=== PATIENT | male | born 1990 | race Caucasian/White ===

== ENCOUNTER 2017-05-04 10:26 | Emergency (ER) | payer SELFPAY ==
[2017-05-04] MEDS ORDERED: NORMAL SALINE 1000 ML 1,000 ML IV PRN (10:47)
--- NOTE | 2017-05-04 10:48 | ER Document Report ---
ED Medical Screen (RME) - General Chief Complaint: Abdominal Pain Stated Complaint: ABDOMINAL PAIN Time Seen by Provider: 05/04/17 10:46 Notes: Patient presents with left lower abdominal pain for 2 days. He states he has had vomiting and diarrhea with it. He states he is also had decreased appetite. He denies any previous surgeries or chronic medical conditions. TRAVEL OUTSIDE OF THE [place] IN LAST 30 DAYS: No - Related Data Allergies/Adverse Reactions: amoxicillin trihydrate [From Augmentin] Allergy (Verified 05/04/17 10:41) Potassium Clavulanate * [From Augmentin] Allergy (Verified 05/04/17 10:41) Past Medical History Pulmonary Medical History: Reports: Hx Asthma Renal/ Medical History: Denies: Hx Peritoneal Dialysis - Immunizations Hx Diphtheria, Pertussis, Tetanus Vaccination: No Physical Exam - Vital signs Vitals: Temp Pulse Resp BP Pulse Ox 97.7 F 67 18 120/73 97 05/04/17 10:41 05/04/17 10:41 05/04/17 10:41 05/04/17 10:41 05/04/17 10:41 Course - Vital Signs Vital signs: Temp Pulse Resp BP Pulse Ox 97.7 F 67 18 120/73 97 05/04/17 10:41 05/04/17 10:41 05/04/17 10:41 05/04/17 10:41 05/04/17 10:41
[2017-05-04] MEDS ORDERED: ONDANSETRON HCL INJ/PF 4 MG/2 ML SDV IV ONE (11:02)
--- NOTE | 2017-05-04 11:04 | ER Document Report ---
ED General - General Chief Complaint: Abdominal Pain Stated Complaint: ABDOMINAL PAIN Time Seen by Provider: 05/04/17 10:46 Notes: 27-year-old male presents with 3 days of intermittent left-sided abdominal pain , crampy, with vomiting diarrhea. Vomiting started first. Diarrhea has been several times a day, green in color. He has not been eating or drinking very much since it began. It started after he ate hot dogs and double legs. No recent antibiotics or foreign travel. Taking Pepto-Bismol and Imodium at home. Currently when I examined him he has no abdominal pain. TRAVEL OUTSIDE OF THE [place] IN LAST 30 DAYS: No - Related Data Allergies/Adverse Reactions: amoxicillin trihydrate [From Augmentin] Allergy (Verified 05/04/17 10:41) Potassium Clavulanate * [From Augmentin] Allergy (Verified 05/04/17 10:41) Past Medical History - Social History Smoking Status: Current Every Day Smoker Frequency of alcohol use: Occasional Drug Abuse: None Family History: None Patient has suicidal ideation: No Patient has homicidal ideation: No Pulmonary Medical History: Reports: Hx Asthma Renal/ Medical History: Denies: Hx Peritoneal Dialysis Past Surgical History: Reports: Hx Oral Surgery - wisdom teeth - Immunizations Hx Diphtheria, Pertussis, Tetanus Vaccination: No Review of Systems - Review of Systems Notes: REVIEW OF SYSTEMS GEN: Denies fever, chills, weight loss ENT: Denies sore throat, nasal discharge, ear pain EYES: Denies blurry vision, eye pain, discharge CV: Denies chest pain, palpitations, edema RESP: Denies cough, shortness of breath, wheezing GI: D abdominal pain vomiting diarrhea MSK: Denies joint pain/swelling, edema, SKIN: Denies rash, skin lesions LYMPH: Denies swollen glands/lymph nodes NEURO: Denies headache, focal weakness or numbness, dizziness PSYCH: Denies depression, suicidal or homicidal ideation PHYSICAL EXAMINATION General: No acute distress, well-nourished Head: Atraumatic, normocephalic ENT: Mouth normal, oropharynx moist, no exudates or tonsillar enlargement Eyes: Conjunctiva normal, pupils equal, lids normal Neck: No JVD, supple, no guarding CVS: Normal rate, regular rhythm, no murmurs Resp: No resp distress, equal and normal breath sounds bilaterally GI: Nondistended, soft, minimal left upper quadrant tenderness to palpation, no rebound or guarding Ext: No deformities, no edema, normal range of motion in upper and lower ext Back: No CVA or midline TTP Skin: No rash, warm Lymphatic: No lymphadeopathy noted Neuro: Awake, alert. Face symmetric. GCS 15. Physical Exam - Vital signs Vitals: Temp Pulse Resp BP Pulse Ox 97.7 F 67 18 120/73 97 05/04/17 10:41 05/04/17 10:41 05/04/17 10:41 05/04/17 10:41 05/04/17 10:41 Course - Re-evaluation Re-evalutation: 05/04/17 11:03 3 days of gastroenteritis type symptoms with left upper abdominal tenderness. Vitals are normal. Well-appearing. Likely viral versus foodborne, less likely diverticulitis or appendicitis given his exam and story. We will hydrate him, check labs he will likely be discharged home with symptomatic therapy. 05/04/17 12:09 Labs are normal except very mild hyponatremia and hypochloremia likely from dehydration. Patient is received a liter of fluid which should replete this. His symptoms are controlled in the ED and his labs are otherwise normal. He is safe for discharge home. I have discussed with the patient there likely diagnosis, aftercare plan, follow-up plans and my usual and customary return precautions. They verbalized understanding of this. - Vital Signs Vital signs: Temp Pulse Resp BP Pulse Ox 97.7 F 67 18 120/73 97 05/04/17 10:41 05/04/17 10:41 05/04/17 10:41 05/04/17 10:41 05/04/17 10:41 - Laboratory Result Diagrams: 05/04/17 11:15 05/04/17 11:15 Laboratory results interpreted by me: 05/04/17 05/04/17 05/04/17 11:15 11:15 11:15 RDW 14.2 H Sodium 136.4 L Chloride 96 L Direct Bilirubin 0.5 H Albumin 5.1 H Urine Ketones TRACE H Discharge - Discharge Clinical Impression: Vomiting and diarrhea Condition: Good Disposition: HOME, SELF-CARE Instructions: Abdominal Pain ([facility]) Additional Instructions: Please continue to take Imodium for your diarrhea and keep well hydrated with water. Please follow-up with your regular doctor if you are not better in 2 days. Please come back to the emergency room if you get worse in any way over the next several days.
[2017-05-04 11:28] LABS: ABSOLUTE EOSINOPHILS # (AUTO) 0.2 10^3/uL (0.0-0.6); ABSOLUTE LYMPHOCYTES (AUTO) 1.3 10^3/uL (0.5-4.7); ABSOLUTE MONOCYTES (AUTO) 0.6 10^3/uL (0.1-1.4); BASOPHILS % (AUTO) 0.8 % (0-2); EOSINOPHILS % (AUTO) 4.5 % (0-6); HEMATOCRIT 46.7 % (37.9-51.0); HEMOGLOBIN 15.7 g/dL (13.5-17.0); HGB HCT DIFFERENCE 0.4; LYMPHOCYTES % (AUTO) 25.8 % (13-45); MEAN CORPUSCULAR HEMOGLOBIN 28.8 pg (27.0-33.4); MEAN CORPUSCULAR HGB CONC 33.6 g/dL (32.0-36.0); MEAN CORPUSCULAR VOLUME 86 fl (80-97); MONOCYTES % (AUTO) 10.9 % (3-13); RED BLOOD COUNT 5.46 10^6/uL (4.35-5.55); RED CELL DISTRIBUTION WIDTH 14.2 % (11.5-14.0); WHITE BLOOD COUNT 5.2 10^3/uL (4.0-10.5)
[2017-05-04 11:38] LABS: APPEARANCE,URINE CLEAR; BILIRUBIN,URINE NEGATIVE (NEGATIVE); GLUCOSE, URINE NEGATIVE (NEGATIVE); KETONES,URINE TRACE mg/dL (NEGATIVE); LEUKOCYTE ESTERASE,URINE NEGATIVE (NEGATIVE); NITRITE,URINE NEGATIVE (NEGATIVE); PROTEIN,URINE NEGATIVE (NEGATIVE); URINE SPECIFIC GRAVITY 1.003; UROBILINOGEN,URINE NEGATIVE mg/dL (<2.0)
[2017-05-04 11:50] LABS: ALANINE AMINOTRANSFERASE 48 U/L (21-72); ALBUMIN 5.1 g/dL (3.5-5.0); ALKALINE PHOSPHATASE 95 U/L (38-126); ANION GAP 13 (5-19); ASPARTATE AMINO TRANSFERASE 37 U/L (17-59); BILIRUBIN,DIRECT 0.5 mg/dL (0.0-0.4); BILIRUBIN,TOTAL 0.7 mg/dL (0.2-1.3); BLOOD UREA NITROGEN 15 mg/dL (7-20); CALCIUM 10.1 mg/dL (8.4-10.2); CARBON DIOXIDE 27 mmol/L (22-30); CHLORIDE 96 mmol/L (98-107); CREATININE RESULT 0.95 mg/dL (0.52-1.25); GLUCOSE 88 mg/dL (75-110); POTASSIUM 4.6 mmol/L (3.6-5.0); SODIUM 136.4 mmol/L (137-145); TOTAL PROTEIN 8.1 g/dL (6.3-8.2)
[2017-05-04 12:15] VITALS: BP 119/68
== END 2017-05-04 12:10 | disposition home or self-care (01) ==
LOC: ER 10:26
DX: R11.10 Vomiting, unspecified (principal); R19.7 Diarrhea, unspecified; R10.812 Left upper quadrant abdominal tenderness; E87.1 Hypo-osmolality and hyponatremia; E87.8 Other disorders of electrolyte and fluid balance, not elsewhere classified; J45.909 Unspecified asthma, uncomplicated; F17.200 Nicotine dependence, unspecified, uncomplicated; Z88.0 Allergy status to penicillin
CPT/HCPCS: 99284; 96361; 96374; 36415; 85025; 80053; 81001; J2405; J7030

== ENCOUNTER 2017-11-05 17:01 | Emergency (ER) | payer OTHER ==
[2017-11-05 17:21] VITALS: BP 117/72
[2017-11-05] MEDS ORDERED: NORMAL SALINE 1000 ML 1,000 ML IV ONE (17:59)
[2017-11-05] MEDS ORDERED: ONDANSETRON HCL INJ/PF 4 MG/2 ML SDV IV ONE (17:59)
--- NOTE | 2017-11-05 18:02 | ER Document Report ---
ED Medical Screen (RME) - General Chief Complaint: Epigastric Pain Stated Complaint: VOMITING, STOMACH PAIN, CHEST PAIN Time Seen by Provider: 11/05/17 17:59 Mode of Arrival: Ambulatory Information source: Patient TRAVEL OUTSIDE OF THE [place] IN LAST 30 DAYS: No - HPI Patient complains to provider of: CP, abd pain, vomiting Onset: Other - pt. with 1 week h/o CP, Abd pain, weakness, and vomiting - Related Data Allergies/Adverse Reactions: amoxicillin trihydrate [From Augmentin] Allergy (Verified 11/05/17 17:02) Potassium Clavulanate * [From Augmentin] Allergy (Verified 11/05/17 17:02) Past Medical History Pulmonary Medical History: Reports: Hx Asthma Renal/ Medical History: Denies: Hx Peritoneal Dialysis Past Surgical History: Reports: Hx Oral Surgery - wisdom teeth - Immunizations Hx Diphtheria, Pertussis, Tetanus Vaccination: No Physical Exam - Vital signs Vitals: Temp Pulse Resp BP Pulse Ox 99.0 F 82 16 117/72 98 11/05/17 17:20 11/05/17 17:20 11/05/17 17:20 11/05/17 17:20 11/05/17 17:20 Course - Vital Signs Vital signs: Temp Pulse Resp BP Pulse Ox 99.0 F 82 16 117/72 98 11/05/17 17:20 11/05/17 17:20 11/05/17 17:20 11/05/17 17:20 11/05/17 17:20
[2017-11-05 18:31] LABS: ABSOLUTE BASOPHILS # (AUTO) 0.1 10^3/uL (0.0-0.2); ABSOLUTE EOSINOPHILS # (AUTO) 0.5 10^3/uL (0.0-0.6); ABSOLUTE LYMPHOCYTES (AUTO) 2.5 10^3/uL (0.5-4.7); ABSOLUTE MONOCYTES (AUTO) 0.6 10^3/uL (0.1-1.4); ABSOLUTE NEUT (AUTO) 3.9 10^3/uL (1.7-8.2); BASOPHILS % (AUTO) 0.9 % (0-2); EOSINOPHILS % (AUTO) 7.1 % (0-6); HEMATOCRIT 42.7 % (37.9-51.0); LYMPHOCYTES % (AUTO) 32.8 % (13-45); MEAN CORPUSCULAR HEMOGLOBIN 28.1 pg (27.0-33.4); MEAN CORPUSCULAR HGB CONC 32.9 g/dL (32.0-36.0); MEAN CORPUSCULAR VOLUME 86 fl (80-97); MONOCYTES % (AUTO) 8.2 % (3-13); PLATELET COUNT 249 10^3/uL (150-450); RED BLOOD COUNT 4.98 10^6/uL (4.35-5.55); RED CELL DISTRIBUTION WIDTH 13.7 % (11.5-14.0); TOTAL CELLS COUNTED % (AUTO) 100 %; WHITE BLOOD COUNT 7.6 10^3/uL (4.0-10.5)
--- NOTE | 2017-11-05 18:40 | RADIOLOGY REPORT (SQ) ---
EXAM DESCRIPTION: ACUTE ABDOMEN SERIES COMPLETED DATE/TIME: 11/05/2017 6:28 pm REASON FOR STUDY: abd pain COMPARISON: None. NUMBER OF VIEWS: Three views. TECHNIQUE: Frontal chest, supine abdomen and upright/decubitus abdomen radiographic images acquired. LIMITATIONS: None. FINDINGS: CHEST: Lungs clear of infiltrates. FREE AIR: None. No abnormal gas collections. BOWEL GAS PATTERN: Nonobstructive pattern. No dilated loops or air fluid levels. CALCIFICATIONS: No suspicious calcifications. HARDWARE: None in the abdomen. SOFT TISSUES: No gross mass or suggestion of organomegaly. BONES: No acute fracture. Scoliosis. No worrisome bone lesions. OTHER: No other significant finding. IMPRESSION: NO RADIOGRAPHIC EVIDENCE FOR ACUTE ABDOMINAL DISEASE. TECHNICAL DOCUMENTATION: JOB ID: [id number] [employer]- All Rights Reserved Reading location - IP/workstation name: [email or web address]
[2017-11-05 18:45] LABS: ALANINE AMINOTRANSFERASE 42 U/L (21-72); ALBUMIN 5.1 g/dL (3.5-5.0); ALKALINE PHOSPHATASE 54 U/L (38-126); ANION GAP 12 (5-19); ASPARTATE AMINO TRANSFERASE 24 U/L (17-59); BILIRUBIN,DIRECT 0.4 mg/dL (0.0-0.4); BILIRUBIN,TOTAL 0.7 mg/dL (0.2-1.3); BLOOD UREA NITROGEN 11 mg/dL (7-20); CARBON DIOXIDE 29 mmol/L (22-30); CHLORIDE 102 mmol/L (98-107); CREATINE KINASE 80 U/L (55-170); GLUCOSE 98 mg/dL (75-110); SODIUM 143.3 mmol/L (137-145); TOTAL PROTEIN 8.1 g/dL (6.3-8.2)
[2017-11-05 18:46] LABS: APPEARANCE,URINE CLEAR; BILIRUBIN,URINE NEGATIVE (NEGATIVE); COLOR,URINE YELLOW; GLUCOSE, URINE NEGATIVE (NEGATIVE); KETONES,URINE NEGATIVE (NEGATIVE); LEUKOCYTE ESTERASE,URINE NEGATIVE (NEGATIVE); NITRITE,URINE NEGATIVE (NEGATIVE); PROTEIN,URINE NEGATIVE (NEGATIVE); URINE SPECIFIC GRAVITY 1.012; UROBILINOGEN,URINE NEGATIVE mg/dL (<2.0)
[2017-11-05 18:55] LABS: A TYPE INFLUENZA AG NEGATIVE (NEGATIVE); B INFLUENZA AG NEGATIVE (NEGATIVE)
[2017-11-05 18:57] LABS: CREATINE KINASE MB 0.26 ng/mL (<4.55)
[2017-11-05 18:59] LABS: TROPONIN I < 0.012 ng/mL
--- NOTE | 2017-11-05 19:02 | EKG REPORT ---
SEVERITY:- ABNORMAL ECG - SINUS RHYTHM IRBBB : Confirmed by: Keon Busby MD 05-Nov-2017 19:01:34
[2017-11-05] MEDS ORDERED: MAG HYDROX/AL HYDROX/SIMETH SUSP 30 ML UDCUP PO ONE (19:24)
[2017-11-05] MEDS ORDERED: METOCLOPRAMIDE HCL ORAL SOLN 10 MG/10 ML UDCUP PO ONE (19:24)
[2017-11-05] MEDS ORDERED: LIDOCAINE 2% VISCOUS SOLN 20 ML UDCUP PO ONE (19:24)
--- NOTE | 2017-11-05 19:26 | ER Document Report ---
ED General - General Chief Complaint: Epigastric Pain Stated Complaint: VOMITING, STOMACH PAIN, CHEST PAIN Time Seen by Provider: 11/05/17 17:59 Mode of Arrival: Ambulatory TRAVEL OUTSIDE OF THE [place] IN LAST 30 DAYS: No - HPI Patient complains to provider of: Epigastric abdominal pain vomiting Notes: Patient coming in for the above-stated symptoms. Patient also states some chest pain. Patient states increased use of ibuprofen over the last few months. Patient states states is for his back. Patient states he mostly gets pain approximately 30-45 minutes after eating. Patient denies any rectal bleeding. Patient resting company upon my evaluation. Denies recent travel trauma denies any fever chills - Related Data Allergies/Adverse Reactions: amoxicillin trihydrate [From Augmentin] Allergy (Verified 11/05/17 17:02) Potassium Clavulanate * [From Augmentin] Allergy (Verified 11/05/17 17:02) Past Medical History - General Information source: Patient - Social History Smoking Status: Current Every Day Smoker Frequency of alcohol use: Social Drug Abuse: None Family History: None Patient has suicidal ideation: No Patient has homicidal ideation: No Pulmonary Medical History: Reports: Hx Asthma Renal/ Medical History: Denies: Hx Peritoneal Dialysis Past Surgical History: Reports: Hx Oral Surgery - wisdom teeth - Immunizations Hx Diphtheria, Pertussis, Tetanus Vaccination: No Review of Systems - Review of Systems Constitutional: No symptoms reported EENT: No symptoms reported Cardiovascular: No symptoms reported, Chest pain Gastrointestinal: Abdominal pain, Nausea, Vomiting Genitourinary: No symptoms reported Male Genitourinary: No symptoms reported Musculoskeletal: No symptoms reported Skin: No symptoms reported Hematologic/Lymphatic: No symptoms reported Neurological/Psychological: No symptoms reported -: Yes All other systems reviewed and negative Physical Exam - Vital signs Vitals: Temp Pulse Resp BP Pulse Ox 99.0 F 82 16 117/72 98 11/05/17 17:20 11/05/17 17:20 11/05/17 17:20 11/05/17 17:20 11/05/17 17:20 Interpretation: Normal - General General appearance: Appears well, Alert - HEENT Head: Normocephalic, Atraumatic Eyes: Normal Pupils: PERRL - Respiratory Respiratory status: No respiratory distress Chest status: Tender - Tenderness palpation of the left side of the chest Breath sounds: Normal Chest palpation: Normal - Cardiovascular Rhythm: Regular Heart sounds: Normal auscultation Murmur: No - Abdominal Inspection: Normal Distension: No distension Bowel sounds: Normal Tenderness: Tender - Mild tenderness in the epigastric region Organomegaly: No organomegaly - Back Back: Normal, Nontender - Extremities General upper extremity: Normal inspection, Nontender, Normal color, Normal ROM , Normal temperature General lower extremity: Normal inspection, Nontender, Normal color, Normal ROM , Normal temperature, Normal weight bearing. No: Gal's sign - Neurological Neuro grossly intact: Yes Cognition: Normal Orientation: AAOx4 [place] Coma Scale Eye Opening: Spontaneous [place] Coma Scale Verbal: Oriented [place] Coma Scale Motor: Obeys Commands [place] Coma Scale Total: 15 Speech: Normal Motor strength normal: LUE, RUE, LLE, RLE Sensory: Normal - Psychological Associated symptoms: Normal affect, Normal mood - Skin Skin Temperature: Warm Skin Moisture: Dry Skin Color: Normal Course - Re-evaluation Re-evalutation: 11/06/17 00:35 The patient has atypical chest pain as the patient's chest pain is not suggestive of pulmonary embolus, cardiac ischemia, aortic dissection, or other serious etiology. Given the extremely low risk of these diagnoses further testing and evaluation for these possibilities does not appear to be indicated at this time. The patient has been instructed to return if the symptoms worsen or change in any way. The patient presents with abdominal pain without signs of peritonitis or other life-threatening or serious etiology. The patient appears stable for discharge and has been instructed to return immediately if the symptoms worsen in any way, or in 8-12hr if not improved for re-evaluation. The patient has been instructed to return if the symptoms worsen or change in any way. Due to the patient's history of chronic NSAID use more likely patient has developed gastritis. We will start the patient on Reglan Carafate and omeprazole. Patient was encouraged to follow-up with a GI specialist. - Vital Signs Vital signs: Temp Pulse Resp BP Pulse Ox 99.0 F 82 16 117/72 98 11/05/17 17:20 11/05/17 17:20 11/05/17 17:20 11/05/17 17:20 11/05/17 17:20 - Laboratory Result Diagrams: 11/05/17 18:10 11/05/17 18:10 Laboratory results interpreted by me: 11/05/17 11/05/17 18:10 18:10 Eosinophils % 7.1 H Albumin 5.1 H Discharge - Discharge Clinical Impression: Epigastric abdominal pain Condition: Good Disposition: HOME, SELF-CARE Instructions: Abdominal Pain ([facility]), Gastritis ([facility]) Additional Instructions: Take medications as prescribed. Your laboratory studies today did not show any signs of acute illness your history and the location of the pain is consistent with gastritis. More likely this is induced due to your anti-inflammatory use alcohol use and smoking. Recommend stopping these habits. Also recommend following up with one the GI doctors listed. Take medications as prescribed return to ER symptoms worsen. Prescriptions: Metoclopramide HCl [Reglan] 5 mg PO Q6 #30 tablet Omeprazole 20 mg PO DAILY #30 capsule. Sucralfate [Carafate 1 gm Tablet] 1 gm PO ACHS #120 tablet Forms: Return to Work
== END 2017-11-05 19:48 | disposition home or self-care (01) ==
LOC: ER 17:01
DX: R10.13 Epigastric pain (principal); R11.10 Vomiting, unspecified; R07.9 Chest pain, unspecified; F17.200 Nicotine dependence, unspecified, uncomplicated
CPT/HCPCS: 93005; 99284; 96361; 96374; 36415; 82553; 82550; 85025; 80053; 81001; 84484; 87804; 74022; 93010; J3490; J2405; J7030

== ENCOUNTER 2018-02-03 07:26 | Emergency (ER) | payer OTHER ==
[2018-02-03 07:38] VITALS: BP 117/79
--- NOTE | 2018-02-03 07:50 | ER Document Report ---
ED General - General Chief Complaint: Suture Removal Stated Complaint: SUTURE REMOVAL Time Seen by Provider: 02/03/18 07:50 Mode of Arrival: Ambulatory Information source: Patient TRAVEL OUTSIDE OF THE [place] IN LAST 30 DAYS: No - HPI Notes: 27-year-old male presents to emergency room for suture removal after cutting his dorsal aspect of finger on the garage door spring approximately 9 days ago. Denies any fevers or chills. Tetanus is up-to-date. Denies any numbness or tingling in fingers. Denies any drainage from wound. Denies any pain. He had 3 sutures placed. Denies numbness or tingling in bilateral upper or lower extremities equally, muscle paralysis, weakness in bilateral upper or lower extremities equally or rash. - Related Data Allergies/Adverse Reactions: amoxicillin trihydrate [From Augmentin] Allergy (Verified 11/05/17 17:02) Potassium Clavulanate * [From Augmentin] Allergy (Verified 11/05/17 17:02) Past Medical History - General Information source: Patient - Social History Smoking Status: Unknown if Ever Smoked Family History: None Pulmonary Medical History: Reports: Hx Asthma Renal/ Medical History: Denies: Hx Peritoneal Dialysis Past Surgical History: Reports: Hx Oral Surgery - wisdom teeth - Immunizations Hx Diphtheria, Pertussis, Tetanus Vaccination: No Review of Systems - Review of Systems Constitutional: No symptoms reported Cardiovascular: No symptoms reported Respiratory: No symptoms reported Male Genitourinary: No symptoms reported Musculoskeletal: No symptoms reported Skin: See HPI Hematologic/Lymphatic: No symptoms reported Neurological/Psychological: No symptoms reported Physical Exam - Vital signs Vitals: Temp Pulse Resp BP Pulse Ox 98.3 F 66 16 117/79 97 02/03/18 07:36 02/03/18 07:36 02/03/18 07:36 02/03/18 07:36 02/03/18 07:36 - Notes Notes: PHYSICAL EXAMINATION: GENERAL: Well-appearing, well-nourished and in no acute distress. HEAD: Atraumatic, normocephalic. NECK: Normal range of motion, supple without lymphadenopathy LUNGS: Breath sounds clear to auscultation bilaterally and equal. No wheezes rales or rhonchi. HEART: Regular rate and rhythm without murmurs Musculoskeletal: Normal range of motion, no pitting or edema. No cyanosis. NEUROLOGICAL: Cranial nerves grossly intact. Normal speech, normal gait. Normal sensory, motor exams. Full motor and sensory function in MANNIE. Title Department Manager + 2 BUE equally. Ulnar and radial pulses + 2 BUE equally. DTRs +2 in bilateral upper extremities equally. No deformity noted of hand or wrist bilaterally. Normal flexion, extension, ulnar/radial deviation. Negative kanavels sign. No open wounds or drainage from wrist. No vascular compromise. full motor and sensory function with medial, radial and ulnar nerves bilaterally and equally. PSYCH: Normal mood, normal affect. SKIN: Warm, Dry, normal turgor, no rashes or lesions noted. 3 simple sutures to the dorsal aspect of right index finger at PIP. no erythema, induration or drainage noted. Course - Re-evaluation Re-evalutation: 02/03/18 09:35 Removal left 3 simple sutures without issues. with suture kit. tolerated removal incident. advised to follow-up with primary care provider as needed. Monitor for any signs and symptoms of infection such as redness, drainage, swelling. All questions answered. Patient verbalized understanding of this plan of care and agree with plan of care. patient comfortable with the decision to go home. 02/03/18 09:37 After performing a Medical Screening Examination, I estimate there is LOW risk for OPEN FRACTURE, COMPARTMENT SYNDROME, TENDON RUPTURE, ACUTE NEUROVASCULAR INJURY, or RETAINED FOREIGN BODY, thus I consider the discharge disposition reasonable. Also, there is no evidence or peritonitis, sepsis, or toxicity. I have reevaluated this patient multiple times and no significant life threatening changes are noted. The patient and I have discussed the diagnosis and risks, and we agree with discharging home with close follow-up with the understanding that symptoms and presentations can change. We also discussed returning to the Emergency Department immediately if new or worsening symptoms occur. We have discussed the symptoms which are most concerning (e.g., changing or worsening pain, fever, numbness, weakness, cool or painful digits) that necessitate immediate return. 02/03/18 09:38 - Vital Signs Vital signs: Temp Pulse Resp BP Pulse Ox 98.3 F 66 16 117/79 97 02/03/18 07:36 02/03/18 07:36 02/03/18 07:36 02/03/18 07:36 02/03/18 07:36 Discharge - Discharge Clinical Impression: Encounter for removal of sutures Condition: Good Disposition: HOME, SELF-CARE Instructions: Suture Removal Referrals: DRU JC MD [ACTIVE STAFF] - Follow up as needed JANETH SALAZAR MD [ACTIVE STAFF] - Follow up as needed
== END 2018-02-03 08:28 | disposition home or self-care (01) ==
LOC: ER 07:26
DX: S61.210D Laceration without foreign body of right index finger without damage to nail, subsequent encounter (principal); W45.8XXD Other foreign body or object entering through skin, subsequent encounter; J45.909 Unspecified asthma, uncomplicated; Z88.0 Allergy status to penicillin

== ENCOUNTER 2018-03-27 10:53 | Emergency (ER) | payer OTHER ==
[2018-03-27 11:00] VITALS: BP 120/75
--- NOTE | 2018-03-27 11:20 | ER Document Report ---
ED General - General Chief Complaint: Head Injury Stated Complaint: FELL/BACK/NECK PAIN Time Seen by Provider: 03/27/18 11:11 Mode of Arrival: Ambulatory Information source: Patient Notes: 28-year-old male with history of asthma, chronic low back pain presents with complaint of headache, neck pain, nausea and intermittent blurred vision. Patient states that he was walking up his stairs yesterday when he lost his balance causing him to fall backwards down 3 steps landing on the concrete and striking his head and neck. Patient denies any loss of consciousness. He was able to get up independently. He states that since that time he is experienced a severe headache that is located in the back of his head. It is described as a constant throbbing pain. He is also experiencing some aching neck pain. TRAVEL OUTSIDE OF THE [place] IN LAST 30 DAYS: No - Related Data Allergies/Adverse Reactions: amoxicillin trihydrate [From Augmentin] Allergy (Verified 03/27/18 11:17) Potassium Clavulanate * [From Augmentin] Allergy (Verified 03/27/18 11:17) ibuprofen Adverse Reaction (Verified 03/27/18 11:17) Past Medical History - General Information source: Patient, [facility] Records - Social History Smoking Status: Former Smoker Chew tobacco use (# tins/day): No Frequency of alcohol use: Occasional Drug Abuse: None Lives with: Family Family History: None Patient has suicidal ideation: No Patient has homicidal ideation: No Pulmonary Medical History: Reports: Hx Asthma Renal/ Medical History: Denies: Hx Peritoneal Dialysis Past Surgical History: Reports: Hx Oral Surgery - wisdom teeth - Immunizations Hx Diphtheria, Pertussis, Tetanus Vaccination: No Review of Systems - Review of Systems Notes: REVIEW OF SYSTEMS: CONSTITUTIONAL : Denies fever, chills, or sweats. Denies recent illness. Denies weight loss, recent hospitalizations. EENT: Denies visual changes, eye pain. Denies nasal or sinus congestion or discharge. Denies sore throat, oral lesions, difficulty swallowing. CARDIOVASCULAR: Denies chest pain. Denies palpitations. Denies lower extremity edema. RESPIRATORY: Denies cough, cold, or chest congestion. Denies shortness of breath, wheezing. GASTROINTESTINAL: Denies abdominal pain or distention. Denies diarrhea. Denies blood in vomitus, stools, or per rectum. Denies black, tarry stools. Denies constipation. GENITOURINARY: Denies difficulty urinating, painful urination, frequency, blood in urine, or vaginal discharge. MUSCULOSKELETAL: Denies joint pain or swelling. SKIN: Denies rash, lesions or sores. HEMATOLOGIC : Denies easy bruising or bleeding. LYMPHATIC: Denies swollen glands. NEUROLOGICAL: Denies confusion or altered mental status. Denies passing out or loss of consciousness. Denies dizziness or lightheadedness. Denies headache. Denies weakness or paralysis. Denies problems difficulty with ambulation, slurred speech. Denies sensory loss, numbness, or tingling. Denies seizures. PSYCHIATRIC: Denies anxiety or stress. Denies depression, suicidal ideation, or homicidal ideation. Denies visual or auditory hallucinations. Physical Exam - Vital signs Vitals: Temp Pulse Resp BP Pulse Ox 98.3 F 91 18 120/75 98 03/27/18 10:57 03/27/18 10:57 03/27/18 10:57 03/27/18 10:57 03/27/18 10:57 Interpretation: No: Hypertensive, Tachycardic, Hypoxic, Tachypneic, Febrile - Notes Notes: PHYSICAL EXAMINATION: GENERAL: Well-appearing, well-nourished and in no acute distress. HEAD: Atraumatic, normocephalic. EYES: Pupils equal round and reactive to light, extraocular movements intact, sclera anicteric, conjunctiva are normal. ENT: Nares patent, oropharynx clear without exudates. Moist mucous membranes. NECK: Normal range of motion, supple without lymphadenopathy. Midline tenderness of the cervical spine LUNGS: Breath sounds clear to auscultation bilaterally and equal. No wheezes rales or rhonchi. HEART: Regular rate and rhythm without murmurs ABDOMEN: Soft, nontender, nondistended abdomen. No guarding, no rebound. No masses appreciated. Musculoskeletal: Normal range of motion, no pitting or edema. No cyanosis. Midline tenderness of the thoracic spine NEUROLOGICAL: Cranial nerves grossly intact. Normal speech, normal gait. Normal sensory, motor exams PSYCH: Normal mood, normal affect. SKIN: Warm, Dry, normal turgor, no rashes or lesions noted. Course - Re-evaluation Re-evalutation: Cervical Spine CT 03/27/18 11:16 IMPRESSION: Reversed normal cervical lordotic curve. No acute fracture. Head CT 03/27/18 11:16 IMPRESSION: NORMAL BRAIN CT WITHOUT CONTRAST. EVIDENCE OF ACUTE STROKE: NO. Thoracic Spine X-Ray 03/27/18 11:18 IMPRESSION: No acute fracture. Increased thoracolumbar scoliosis. 03/27/18 12:57 28-year-old male presents with complaint of head neck and back pain after falling down 3 stairs yesterday. Patient states he lost his balance fell backwards striking his head on concrete but denies any loss of consciousness. Today he is complaining of a headache, nausea, neck and upper back pain. Imaging of the cervical spine head and thoracic spine were obtained and showed no acute process. Patient was given Tylenol during his ED course. I will be discharged home with a prescription for Flexeril. Concussion instructions were given to the patient. He was advised to return with worsening headache or if he experiences more than 1 episode of vomiting. Patient provided the opportunity to ask questions, and express concerns. Discharge instructions discussed. Patient is agreeable with discharge home. Return indications explained and discussed with the patient who displays understanding. Patient encouraged to return to the emergency department immediately with any concerns. - Vital Signs Vital signs: Temp Pulse Resp BP Pulse Ox 98.3 F 91 18 120/75 98 03/27/18 10:57 03/27/18 10:57 03/27/18 10:57 03/27/18 10:57 03/27/18 10:57 - Diagnostic Test Radiology reviewed: Image reviewed, Reports reviewed Discharge - Discharge Clinical Impression: Closed head injury Qualifiers: Encounter type: initial encounter Qualified Code(s): S09.90XA - Unspecified injury of head, initial encounter Concussion Qualifiers: Encounter type: initial encounter Loss of consciousness presence/duration: without LOC Qualified Code(s): S06.0X0A - Concussion without loss of consciousness, initial encounter Cervical strain Qualifiers: Encounter type: initial encounter Qualified Code(s): S16.1XXA - Strain of muscle, fascia and tendon at neck level, initial encounter Condition: Good Disposition: HOME, SELF-CARE Instructions: Chronic Back Pain ([facility]), Concussion ([facility]), Head Injury Precautions ([facility]), Low Back Pain ([facility]), Neck Injury (Cervical Strain) ([facility]), Post-Concussion Syndrome ([facility]) Additional Instructions: Your imaging today was normal. There was no evidence of any breaks in your bones. You are likely going to suffer from headaches and intermittent nausea over the next few days. The best thing to do is to allow your brain to rest and not overstimulated with lots of TV or loud noise. Follow up with your physician tomorrow for further care or return to the ED IMMEDIATELY if symptoms worsen or new concerns occur. If you cannot afford to follow up with your primary care physician a list of low cost clinics have been provided at the end of your discharge papers as well. Prescriptions: Cyclobenzaprine HCl [Flexeril 10 mg Tablet] 10 mg PO TIDP PRN #15 tab PRN Reason: Ondansetron [Zofran Odt 4 mg Tablet] 1 - 2 tab PO Q4H PRN #15 tab.rapdis PRN Reason: For Nausea/Vomiting
--- NOTE | 2018-03-27 12:00 | RADIOLOGY REPORT (SQ) ---
EXAM DESCRIPTION: CT HEAD WITHOUT COMPLETED DATE/TIME: 03/27/2018 11:42 am REASON FOR STUDY: fall COMPARISON: None. TECHNIQUE: Axial images acquired through the brain without intravenous contrast. Images reviewed wi th bone, brain and subdural windows. Additional sagittal and coronal reconstructions were generated. Images stored on PACS. All CT scanners at this facility use dose modulation, iterative reconstruction, and/or weight based d osing when appropriate to reduce radiation dose to as low as reasonably achievable (ALARA). [facility]: Dose Right [facility]: CareDose [facility]: Dose Right [facility]: Teradose 4D [facility]: [employer] RADIATION DOSE: CT Rad equipment meets quality standard of care and radiation dose reduction techniq ues were employed. CTDIvol: 53.2 mGy. DLP: 1017 mGy-cm. mGy. LIMITATIONS: None. FINDINGS: VENTRICLES: Normal size and contour. CEREBRUM: No masses. No hemorrhage. No midline shift. No evidence for acute infarction. Normal gra y/white matter differentiation. No areas of low density in the white matter. CEREBELLUM: No masses. No hemorrhage. No alteration of density. No evidence for acute infarction. EXTRAAXIAL SPACES: No fluid collections. No masses. ORBITS AND GLOBE: No intra- or extraconal masses. Normal contour of globe without masses. CALVARIUM: No fracture. PARANASAL SINUSES: No fluid or mucosal thickening. SOFT TISSUES: No mass or hematoma. OTHER: No other significant finding. IMPRESSION: NORMAL BRAIN CT WITHOUT CONTRAST. EVIDENCE OF ACUTE STROKE: NO. COMMENT: Quality ID # [id number]: Final reports with documentation of one or more dose reduction techniques (e.g., Automated exposure control, adjustment of the mA and/or kV according to patient size, use of iterative reconstruction technique) TECHNICAL DOCUMENTATION: JOB ID: [id number] [employer]- All Rights Reserved Reading location - IP/workstation name: [email or web address]
--- NOTE | 2018-03-27 12:01 | RADIOLOGY REPORT (SQ) ---
EXAM DESCRIPTION: CT CERVICAL SPINE WITHOUT COMPLETED DATE/TIME: 03/27/2018 11:42 am REASON FOR STUDY: fall COMPARISON: None. TECHNIQUE: Axial images acquired through the cervical spine without intravenous contrast. Images re viewed with lung, soft tissue and bone windows. Reconstructed coronal and sagittal MPR images review ed. Images stored on PACS. All CT scanners at this facility use dose modulation, iterative reconstruction, and/or weight based d osing when appropriate to reduce radiation dose to as low as reasonably achievable (ALARA). [facility]: Dose Right [facility]: CareDose [facility]: Dose Right [facility]: Teradose 4D [facility]: Smart [employer] RADIATION DOSE: CT Rad equipment meets quality standard of care and radiation dose reduction techniq ues were employed. CTDIvol: 19.2 mGy. DLP: 386 mGy-cm. mGy. LIMITATIONS: None. FINDINGS: ALIGNMENT: Reversal of the normal cervical lordotic curve. MINERALIZATION: Normal. VERTEBRAL BODIES: No fractures or dislocation. DISCS: No significant disc disease. FACETS, LATERAL MASSES, POSTERIOR ELEMENTS: No fractures. No dislocation. No acute findings. HARDWARE: None in the spine. VISUALIZED RIBS: No fractures. LUNG APICES AND SOFT TISSUES: No significant or acute findings. OTHER: No other significant finding. IMPRESSION: Reversed normal cervical lordotic curve. No acute fracture. TECHNICAL DOCUMENTATION: JOB ID: [id number] Quality ID # [id number]: Final reports with documentation of one or more dose reduction techniques (e.g., Au tomated exposure control, adjustment of the mA and/or kV according to patient size, use of iterative reconstruction technique) 2010 [employer]- All Rights Reserved Reading location - IP/workstation name: [email or web address]
--- NOTE | 2018-03-27 12:29 | RADIOLOGY REPORT (SQ) ---
EXAM DESCRIPTION: T SPINE AP/LAT COMPLETED DATE/TIME: 03/27/2018 12:00 pm REASON FOR STUDY: Fall midline tenderness COMPARISON: 01/29/2010 NUMBER OF VIEWS: Two views. TECHNIQUE: AP and lateral radiographic images acquired of the thoracic spine. LIMITATIONS: None. FINDINGS: MINERALIZATION: Normal. ALIGNMENT: Increase scoliosis. 29 convex left. VERTEBRAE: No fracture or bone lesion. Maintained height, normal segmentation. DISCS: No significant loss of height or significant narrowing. No large osteophytes. HARDWARE: None in the spine. MEDIASTINUM AND SOFT TISSUES: Normal heart size and aortic contour. No soft tissue abnormality. VISUALIZED LUNG EDWARDS: Clear. OTHER: No other significant finding. IMPRESSION: No acute fracture. Increased thoracolumbar scoliosis. TECHNICAL DOCUMENTATION: JOB ID: [id number] [employer]- All Rights Reserved Reading location - IP/workstation name: [email or web address]
== END 2018-03-27 12:19 | disposition home or self-care (01) ==
LOC: ER 10:53
DX: S09.90XA Unspecified injury of head, initial encounter (principal); S16.1XXA Strain of muscle, fascia and tendon at neck level, initial encounter; M54.5 Low back pain; G89.29 Other chronic pain; R51 Headache; M54.2 Cervicalgia; H53.8 Other visual disturbances; R11.0 Nausea; W10.9XXA Fall (on) (from) unspecified stairs and steps, initial encounter; Z87.891 Personal history of nicotine dependence; J45.909 Unspecified asthma, uncomplicated
CPT/HCPCS: 70450; 72070; 72125; 99284

== ENCOUNTER 2018-04-07 21:53 | Emergency (ER) | payer OTHER ==
[2018-04-07 22:06] VITALS: BP 123/77
== END 2018-04-07 23:42 | disposition left against medical advice (07) ==
LOC: ER 21:53
DX: Z53.21 Procedure and treatment not carried out due to patient leaving prior to being seen by health care provider (principal)

== ENCOUNTER 2018-05-02 07:41 | Emergency (ER) | payer OTHER ==
[2018-05-02 07:46] VITALS: BP 128/81
[2018-05-02] MEDS ORDERED: LIDOCAINE 1% INJ (10 MG/ML) 10 ML MDV INJ ONE (09:23)
[2018-05-02] MEDS ORDERED: LIDOCAINE 1% INJ-PF (10 MG/ML) 30 ML SDV INJ ONE ×3 (09:24→10:00)
--- NOTE | 2018-05-02 10:17 | ER Document Report ---
ED Hand/Wrist Injury - General Chief Complaint: Finger Injury Stated Complaint: FINGER LACERATION Time Seen by Provider: 05/02/18 09:20 Notes: Patient is a 28-year-old male presenting to the ED with a laceration to his left index finger. Patient reports that he sliced his finger on a can approximately 4 PM yesterday while intoxicated. Patient's tetanus status is up- to-date. Patient is not a diabetic TRAVEL OUTSIDE OF THE [place] 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 No active bleeding - Related Data Allergies/Adverse Reactions: amoxicillin trihydrate [From Augmentin] Allergy (Verified 05/02/18 07:41) Potassium Clavulanate * [From Augmentin] Allergy (Verified 05/02/18 07:41) ibuprofen Adverse Reaction (Verified 05/02/18 07:41) Past Medical History - General Information source: Patient - Social History Smoking Status: Current Every Day Smoker Chew tobacco use (# tins/day): No Frequency of alcohol use: Heavy Drug Abuse: None Lives with: Family Family History: None Patient has suicidal ideation: No Patient has homicidal ideation: No - Medical History Medical History: Negative Pulmonary Medical History: Reports: Hx Asthma Renal/ Medical History: Denies: Hx Peritoneal Dialysis Past Surgical History: Reports: Hx Oral Surgery - wisdom teeth - Immunizations Hx Diphtheria, Pertussis, Tetanus Vaccination: No Review of Systems - Review of Systems Constitutional: No symptoms reported EENT: No symptoms reported Cardiovascular: No symptoms reported Respiratory: No symptoms reported Gastrointestinal: No symptoms reported Genitourinary: No symptoms reported Male Genitourinary: No symptoms reported Musculoskeletal: No symptoms reported Skin: See HPI Hematologic/Lymphatic: No symptoms reported Neurological/Psychological: No symptoms reported Physical Exam - Vital signs Vitals: Temp Pulse Resp BP Pulse Ox 97.6 F 76 16 128/81 H 97 05/02/18 07:45 05/02/18 07:45 05/02/18 07:45 05/02/18 07:45 05/02/18 07:45 Interpretation: Normal - General General appearance: Appears well, Alert - HEENT Head: Normocephalic, Atraumatic Eyes: Normal Pupils: PERRL - Respiratory Respiratory status: No respiratory distress Chest status: Nontender Breath sounds: Normal Chest palpation: Normal - Cardiovascular Rhythm: Regular Heart sounds: Normal auscultation Murmur: No - Abdominal Inspection: Normal Distension: No distension Bowel sounds: Normal Tenderness: Nontender Organomegaly: No organomegaly - Back Back: Normal, Nontender - Extremities General upper extremity: Normal inspection, Nontender, Normal color, Normal ROM , Normal temperature General lower extremity: Normal inspection, Nontender, Normal color, Normal ROM , Normal temperature, Normal weight bearing. No: Gal's sign - Neurological Neuro grossly intact: Yes Cognition: Normal Orientation: AAOx4 [place] Coma Scale Eye Opening: Spontaneous Hermes Coma Scale Verbal: Oriented Hermes Coma Scale Motor: Obeys Commands [place] Coma Scale Total: 15 Speech: Normal Motor strength normal: LUE, RUE, LLE, RLE Sensory: Normal - Psychological Associated symptoms: Normal affect, Normal mood - Skin Skin Temperature: Warm Skin Moisture: Dry Skin Color: Normal Skin irregularity: Laceration - Flat black to proximal left index finger, palmar side Course - Re-evaluation Re-evalutation: 05/02/18 10:15 Wound was closed using #4 interrupted sutures. Edges well approximated. Patient tolerated well. No tendon involvement - Vital Signs Vital signs: Temp Pulse Resp BP Pulse Ox 97.6 F 76 16 128/81 H 97 05/02/18 07:45 05/02/18 07:45 05/02/18 07:45 05/02/18 07:45 05/02/18 07:45 Procedures - Laceration/Wound Repair Left index finger Wound length (cm): 3 Wound's Depth, Shape: Flap Laceration pre-procedure: Sterile drapes applied, Shur-Clens applied Anesthetic type: 1% Lidocaine Volume Anesthetic (mLs): 3 Wound explored: Clean Irrigated w/ Saline (mLs): 20 Wound Repaired With: Sutures Suture Size/Type: 5:0, Ethilon Number of Sutures: 4 Layer Closure?: No Post-procedure wound care: Sterile dressing applied Post-procedure NV exam normal: Yes Complications: No Discharge - Discharge Clinical Impression: Finger laceration Qualifiers: Encounter type: initial encounter Finger: index finger Damage to nail status: without damage Foreign body presence: without foreign body Laterality: left Qualified Code(s): S61.211A - Laceration without foreign body of left index finger without damage to nail, initial encounter Condition: Stable Disposition: HOME, SELF-CARE Instructions: Antibiotic Ointment Protection ([facility]), Laceration Care ([facility]), Soap Cleansing ([facility]) Additional Instructions: Wash laceration gently with soap and water, do not submerge hand under water Return to the emergency department in 10 days for suture removal May take Tylenol for discomfort Follow-up with your primary care as needed
== END 2018-05-02 10:29 | disposition home or self-care (01) ==
LOC: ER 07:41
DX: S61.211A Laceration without foreign body of left index finger without damage to nail, initial encounter (principal); W45.8XXA Other foreign body or object entering through skin, initial encounter; Y92.009 Unspecified place in unspecified non-institutional (private) residence as the place of occurrence of the external cause; F17.200 Nicotine dependence, unspecified, uncomplicated; J45.909 Unspecified asthma, uncomplicated; Z88.0 Allergy status to penicillin
CPT/HCPCS: 99283

== ENCOUNTER 2018-05-12 08:53 | Emergency (ER) | payer OTHER ==
[2018-05-12 09:08] VITALS: BP 132/71
--- NOTE | 2018-05-12 09:31 | ER Document Report ---
ED Suture/Wound Recheck - General Chief Complaint: Suture Removal Stated Complaint: SUTURE REMOVAL Time Seen by Provider: 05/12/18 09:11 Mode of Arrival: Ambulatory Information source: Patient Notes: 28-year-old male presented ED for removal of sutures from his left index finger. Patient is alert and oriented respirations regular and unlabored walks with a even steady gait. Sutures are well-healed with no signs or symptoms of any infection. Patient will be discharged after sutures removed. TRAVEL OUTSIDE OF THE [place] IN LAST 30 DAYS: No - HPI Previous ED treatment: Laceration repair Quality of pain: No pain Severity: None Pain Level: Denies Context: Injury Symptoms since procedure: No complaints Exacerbated by: Denies Relieved by: Denies - Related Data Allergies/Adverse Reactions: amoxicillin trihydrate [From Augmentin] Allergy (Verified 05/12/18 08:54) Potassium Clavulanate * [From Augmentin] Allergy (Verified 05/12/18 08:54) ibuprofen Adverse Reaction (Verified 05/12/18 08:54) Past Medical History - General Information source: Patient - Social History Smoking Status: Current Every Day Smoker Cigarette use (# per day): Yes - Half pack a day Chew tobacco use (# tins/day): No Smoking Education Provided: Yes - 4 minutes Frequency of alcohol use: Social Drug Abuse: None Lives with: Friend Family History: None Patient has suicidal ideation: No Patient has homicidal ideation: No - Past Medical History Cardiac Medical History: Reports: None Pulmonary Medical History: Reports: Hx Asthma EENT Medical History: Reports: None Neurological Medical History: Reports: None Endocrine Medical History: Reports: None Renal/ Medical History: Reports: None Malignancy Medical History: Reports None GI Medical History: Reports: None Musculoskeletal Medical History: Reports Hx Musculoskeletal Deformity, Reports Hx Musculoskeletal Trauma Skin Medical History: Reports None Psychiatric Medical History: Reports: None Traumatic Medical History: Reports: Hx Spine Fracture Infectious Medical History: Reports: None Past Surgical History: Reports: Hx Oral Surgery - wisdom teeth, Hx Orthopedic Surgery, Other - Biopsy of skin and back cyst removed - Immunizations Hx Diphtheria, Pertussis, Tetanus Vaccination: No Review of Systems - Review of Systems Constitutional: No symptoms reported EENT: No symptoms reported Cardiovascular: No symptoms reported Respiratory: No symptoms reported Gastrointestinal: No symptoms reported Genitourinary: No symptoms reported Male Genitourinary: No symptoms reported Musculoskeletal: No symptoms reported Skin: Other - Sutures well-healed Hematologic/Lymphatic: No symptoms reported Neurological/Psychological: No symptoms reported Physical Exam - Vital signs Vitals: Temp Pulse Resp BP Pulse Ox 98.3 F 87 16 132/71 H 95 05/12/18 09:07 05/12/18 09:07 05/12/18 09:07 05/12/18 09:07 05/12/18 09:07 Interpretation: Normal - General General appearance: Appears well, Alert - HEENT Head: Normocephalic, Atraumatic Eyes: Normal Pupils: PERRL - Respiratory Respiratory status: No respiratory distress Chest status: Nontender Breath sounds: Normal Chest palpation: Normal - Cardiovascular Rhythm: Regular Heart sounds: Normal auscultation Murmur: No - Abdominal Inspection: Normal Distension: No distension Bowel sounds: Normal Tenderness: Nontender Organomegaly: No organomegaly - Back Back: Normal, Nontender - Extremities General upper extremity: Nontender, Normal color, Normal ROM, Normal temperature General lower extremity: Normal inspection, Nontender, Normal color, Normal ROM , Normal temperature, Normal weight bearing. No: Gal's sign Hand: Other - Sutures removed from his left index finger. Incision well approximated no redness no drainage no signs of inflammation or infection. Patient tolerated procedure well. - Neurological Neuro grossly intact: Yes Cognition: Normal Orientation: AAOx4 [place] Coma Scale Eye Opening: Spontaneous [place] Coma Scale Verbal: Oriented Hermes Coma Scale Motor: Obeys Commands [place] Coma Scale Total: 15 Speech: Normal Motor strength normal: LUE, RUE, LLE, RLE Sensory: Normal - Psychological Associated symptoms: Normal affect, Normal mood - Skin Skin Temperature: Warm Skin Moisture: Dry Skin Color: Normal Course - Re-evaluation Re-evalutation: 05/12/18 09:25 Sutures were removed patient tolerated well patient will be discharged home. - Vital Signs Vital signs: Temp Pulse Resp BP Pulse Ox 98.3 F 87 16 132/71 H 95 05/12/18 09:07 05/12/18 09:07 05/12/18 09:07 05/12/18 09:07 05/12/18 09:07 Discharge - Discharge Clinical Impression: Visit for suture removal Condition: Stable Disposition: HOME, SELF-CARE Instructions: Family Physicians / Practices, Suture Removal Additional Instructions: SOAP CLEANSING: Gently wash the wound daily using a mild soap (like Ivory, Phisoderm, Neutrogena). Use warm water, rubbing gently until all debris, ooze, and crusting have been washed from the wound. Allow to dry briefly (about 10 minutes) after cleaning. Repeat this cleansing at least three times a day for the first two days and then once or twice a day. ANTIBIOTIC OINTMENT PROTECTION: Your wounds are such that dressing them is not practical or optional. After cleansing, you should apply a thin coating of antibiotic ointment ( Bacitracin, not Neosporin) to the wounds at least three times daily. This lessens infection risk, and may decrease the amount of scarring. Use a q-tip or dull butter knife, not your finger, to apply this ointment. Any debris or ooze which builds up in the ointment should be gently rubbed off with a sterile gauze pad. Harder crusting may need to be gently scrubbed off with a clean wash cloth with soap and warm water, perhaps applying a warm, wet wash cloth to the wound for ten minutes first. Development of redness, severe itching, or blistering may mean allergy to the ointment. See the doctor. FOLLOW-UP CARE: If you have been referred to a physician for follow-up care, call the physician s office for an appointment as you were instructed or within the next two days. If you experience worsening or a significant change in your symptoms, notify the physician immediately or return to the Emergency Department at any time for re-evaluation. Forms: Elevated Blood Pressure, Smoking Cessation Education
== END 2018-05-12 09:58 | disposition home or self-care (01) ==
LOC: ER 08:53
DX: S61.211D Laceration without foreign body of left index finger without damage to nail, subsequent encounter (principal); X58.XXXD Exposure to other specified factors, subsequent encounter; J45.909 Unspecified asthma, uncomplicated; F17.210 Nicotine dependence, cigarettes, uncomplicated; Z71.6 Tobacco abuse counseling; Z88.0 Allergy status to penicillin

== ENCOUNTER 2018-10-12 11:02 | Emergency (ER) | payer SELFPAY ==
[2018-10-12 11:16] VITALS: BP 124/80
--- NOTE | 2018-10-12 12:09 | ER Document Report ---
HPI - HPI Time Seen by Provider: 10/12/18 11:46 Pain Level: 4 Notes: Patient is a 28-year-old male with no significant past medical history presents the emergency department complaining of a rash to his bilateral feet and toes with occasional pain and discomfort over the last several days. 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 He has not noticed any abscess or purulent discharge. No streaking. Eating and drinking without difficulty. No other concerns or complaints. Denies any headache, fever, neck pain, URI, sore throat, chest pain, palpitations, syncope, cough, shortness of breath, wheeze, dyspnea, abdominal pain, nausea/vomiting/diarrhea, urinary retention, dysuria, hematuria. - ROS Systems Reviewed and Negative: Yes All other systems reviewed and negative - MUSCULOSKELETAL Musculoskeletal: REPORTS: Extremity pain - bilateral feet Past Medical History - Social History Smoking Status: Current Every Day Smoker Chew tobacco use (# tins/day): No Frequency of alcohol use: None Drug Abuse: None Family History: None Patient has suicidal ideation: No Patient has homicidal ideation: No Pulmonary Medical History: Reports: Hx Asthma Renal/ Medical History: Denies: Hx Peritoneal Dialysis Musculoskeletal Medical History: Reports Hx Musculoskeletal Deformity, Reports Hx Musculoskeletal Trauma Traumatic Medical History: Reports: Hx Spine Fracture Past Surgical History: Reports: Hx Oral Surgery - wisdom teeth, Hx Orthopedic Surgery, Other - Biopsy of skin and back cyst removed - Immunizations Hx Diphtheria, Pertussis, Tetanus Vaccination: No Vertical Provider Document - CONSTITUTIONAL Agree With Documented VS: Yes Notes: PHYSICAL EXAMINATION: GENERAL: Well-appearing, well-nourished and in no acute distress. LUNGS: Breath sounds clear to auscultation bilaterally and equal. No wheezes rales or rhonchi. HEART: Regular rate and rhythm without murmurs, rubs, gallops. ABDOMEN: Soft, nontender, nondistended abdomen. No guarding, no rebound. No masses appreciated. Normal bowel sounds present. No CVA tenderness bilaterally. Musculoskeletal: Feet b/l: No bony tenderness. FROM to passive/active. Strength 5+/5. Extremities: No cyanosis, clubbing, or edema b/l. Peripheral pulses 2+. Capillary refill less than 3 seconds. NEUROLOGICAL: Normal speech, normal gait. Normal sensory, motor exams PSYCH: Normal mood, normal affect. SKIN: mildly erythemic maculopapular rash noted to the feet b/l. There is one small area of erythema to the right foot that seems tender w/o fluctuance, streaks, induration, or purulence. - INFECTION CONTROL TRAVEL OUTSIDE OF THE [place] IN LAST 30 DAYS: No Course - Re-evaluation Re-evalutation: 10/12/18 12:07 Patient is an afebrile, well-hydrated, 28-year-old male who presents emergency department with what appears to be tinea pedis and possible small area of mild cellulitis without evidence of fluctuance or abscess. Vitals are acceptable. PE is otherwise unremarkable. He is nontoxic-appearing and is tolerating p.o. without difficulty. No labs or imaging warranted at this time. I will send her home with a prescription for Keflex as well as fungal medication. Recheck with your PCM in 3-5 days. Return to the ED with any other worsening/concerning symptoms as viewed. Patient is in agreement. - Vital Signs Vital signs: Temp Pulse Resp BP Pulse Ox 98.8 F 74 16 124/80 96 10/12/18 11:14 10/12/18 11:14 10/12/18 11:14 10/12/18 11:14 10/12/18 11:14 Discharge - Discharge Clinical Impression: Tinea pedis Qualifiers: Laterality: bilateral Qualified Code(s): B35.3 - Tinea pedis Condition: Stable Disposition: HOME, SELF-CARE Additional Instructions: Keep the skin clean and dry Wash with soap and water Tylenol/ibuprofen if needed Triple antibiotic ointment daily Take medication as directed Monitor for any worsening symptoms Recheck with your PCM in 3-5 days Return to the ED with any worsening symptoms and/or development of fever, headache, chest pain, palpitations, syncope, shortness of breath, trouble breathing, abdominal pain, n/v/d, abscess, purulent discharge, red streaks, w orsening swelling, or other worsening symptoms that are concerning to you. Prescriptions: Cephalexin Monohydrate [Keflex 500 mg Capsule] 500 mg PO TID #21 capsule Clotrimazole [Athletic Foot Cream] 1 applic TP BID #30 gm Nystatin 1 each MC TID #1 bottle Forms: Smoking Cessation Education Referrals: OMER SHETH DPM [ACTIVE STAFF] - Follow up as needed
== END 2018-10-12 12:15 | disposition home or self-care (01) ==
LOC: ER 11:02
DX: B35.3 Tinea pedis (principal); F17.200 Nicotine dependence, unspecified, uncomplicated
CPT/HCPCS: 99283

== ENCOUNTER 2018-12-07 12:19 | Emergency (ER) | payer BC ==
--- NOTE | 2018-12-07 13:36 | ER Document Report ---
HPI - HPI Time Seen by Provider: 12/07/18 13:07 Pain Level: 2 Notes: Patient is a 28-year-old male with past medical history of asthma who presents with chief complaint of nasal congestion, mild cough and chills that started last night. Patient reports he is coughing up "green stuff". Patient denies fevers, chills, nausea, vomiting or diarrhea. He reports multiple coworkers have been sick with similar symptoms. - CONSTITUTIONAL Constitutional: DENIES: Fever, Chills - EENT EENT: REPORTS: Sore Throat. DENIES: Ear Pain, Eye problems - NEURO Neurology: DENIES: Headache - CARDIOVASCULAR Cardiovascular: DENIES: Chest pain - RESPIRATORY Respiratory: REPORTS: Coughing. DENIES: Trouble Breathing - GASTROINTESTINAL Gastrointestinal: DENIES: Abdominal Pain, Black / Bloody Stools - URINARY Urinary: DENIES: Dysuria, Urgency, Frequency - MUSCULOSKELETAL Musculoskeletal: DENIES: Extremity pain Past Medical History - General Information source: Patient - Social History Smoking Status: Current Every Day Smoker Frequency of alcohol use: None Drug Abuse: None Family History: None Patient has suicidal ideation: No Patient has homicidal ideation: No Pulmonary Medical History: Reports: Hx Asthma Renal/ Medical History: Denies: Hx Peritoneal Dialysis Musculoskeletal Medical History: Reports Hx Musculoskeletal Deformity, Reports Hx Musculoskeletal Trauma Traumatic Medical History: Reports: Hx Spine Fracture Past Surgical History: Reports: Hx Oral Surgery - wisdom teeth, Hx Orthopedic Surgery, Other - Biopsy of skin and back cyst removed - Immunizations Hx Diphtheria, Pertussis, Tetanus Vaccination: No Vertical Provider Document - CONSTITUTIONAL Notes: PHYSICAL EXAMINATION: GENERAL: Well-appearing, well-nourished and in no acute distress. HEAD: Atraumatic, normocephalic. EYES: Pupils equal round extraocular movements intact, conjunctiva are normal. ENT: Nares patent with clear rhinorrhea, no tonsillar swelling, erythema or exudates noted. NECK: Normal range of motion, no cervical lymphadenopathy. LUNGS: No respiratory distress, lung sounds clear to auscultation bilaterally. Musculoskeletal: Normal range of motion NEUROLOGICAL: Normal speech, normal gait. PSYCH: Normal mood, normal affect. SKIN: Warm, Dry, normal turgor, no rashes or lesions noted. - INFECTION CONTROL TRAVEL OUTSIDE OF THE [place] IN LAST 30 DAYS: No Course - Re-evaluation Re-evalutation: Patient appears well, nontoxic and physical examination is unremarkable. Likely viral upper respiratory illness. No indication for further workup. Patient will be discharged home in stable condition. - Vital Signs Vital signs: Temp Pulse Resp BP Pulse Ox 98.1 F 69 20 135/77 H 100 12/07/18 12:23 12/07/18 12:23 12/07/18 12:23 12/07/18 12:23 12/07/18 12:23 Discharge - Discharge Clinical Impression: Viral upper respiratory illness Asthma exacerbation Qualifiers: Asthma severity: mild Asthma persistence: unspecified Qualified Code(s): J45.901 - Unspecified asthma with (acute) exacerbation Condition: Stable Disposition: HOME, SELF-CARE Instructions: Upper Respiratory Illness ([facility]) Additional Instructions: As discussed please take medications as prescribed. Use your albuterol inhaler 2 puffs every 4 hours as needed for any shortness of breath or wheezing. Please drink plenty of fluids. No work today. Tylenol or ibuprofen for any fevers or body aches. Prescriptions: Fluticasone Propionate [Flonase Nasal Hydes 50 Mcg/Hydes 16 gm] 2 sprays NASL Q12 #1 inhaler Prednisone [Deltasone 20 mg Tablet] 3 tab PO DAILY 5 Days #15 tablet Forms: Return to Work
[2018-12-07 13:56] VITALS: BP 128/82
== END 2018-12-07 13:56 | disposition home or self-care (01) ==
LOC: ER 12:19
DX: J06.9 Acute upper respiratory infection, unspecified (principal); B97.89 Other viral agents as the cause of diseases classified elsewhere; J45.901 Unspecified asthma with (acute) exacerbation; R09.81 Nasal congestion; R05 Cough; J34.89 Other specified disorders of nose and nasal sinuses; J02.9 Acute pharyngitis, unspecified; F17.200 Nicotine dependence, unspecified, uncomplicated
CPT/HCPCS: 99283

== ENCOUNTER 2019-02-09 07:11 | Emergency (ER) | payer BC, OTHER ==
[2019-02-09 07:19] VITALS: BP 143/87
--- NOTE | 2019-02-09 07:48 | ER Document Report ---
ED General - General Chief Complaint: Low Back Pain Stated Complaint: BACK PAIN Time Seen by Provider: 02/09/19 07:35 Primary Care Provider: URBAN COX DO [ACTIVE STAFF] - Follow up as needed Notes: 29-year-old male presents with right knee pain and swelling, difficulty bearing weight onset 2 days ago, worsening. No fever or redness. No rash. No injury. Used to work in [employer] and has had left knee swelling before "water on the knee" but is never seen orthopedics never had a tap does not have gout. Denies STDs sore throat or per history of septic arthritis. He also claims of back pain lower radiating down his right leg with some mild tingling which is been intermittent for years since he fell off a scaffolding and has known compression fractures and herniated disks chronic pain and is seen multiple physicians about this. This is not much worse than usual but has flared up in the setting of the knee. TRAVEL OUTSIDE OF THE [place] IN LAST 30 DAYS: No - Related Data Allergies/Adverse Reactions: amoxicillin trihydrate [From Augmentin] Allergy (Verified 02/09/19 07:15) diphenhydramine [From Benadryl] Allergy (Verified 02/09/19 07:15) morphine Allergy (Verified 02/09/19 07:15) Potassium Clavulanate * [From Augmentin] Allergy (Verified 02/09/19 07:15) ibuprofen Adverse Reaction (Verified 02/09/19 07:15) Past Medical History - Social History Smoking Status: Never Smoker Family History: None Pulmonary Medical History: Reports: Hx Asthma Renal/ Medical History: Denies: Hx Peritoneal Dialysis Musculoskeletal Medical History: Reports Hx Musculoskeletal Deformity, Reports Hx Musculoskeletal Trauma Traumatic Medical History: Reports: Hx Spine Fracture Past Surgical History: Reports: Hx Oral Surgery - wisdom teeth, Hx Orthopedic Surgery, Other - Biopsy of skin and back cyst removed - Immunizations Hx Diphtheria, Pertussis, Tetanus Vaccination: No Review of Systems - Review of Systems Notes: REVIEW OF SYSTEMS GEN: Denies fever, chills, weight loss ENT: Denies sore throat, nasal discharge, ear pain EYES: Denies blurry vision, eye pain, discharge CV: Denies chest pain, palpitations, edema RESP: Denies cough, shortness of breath, wheezing GI: Denies abdominal pain, nausea, vomiting, diarrhea MSK: Back pain right knee pain SKIN: Denies rash, skin lesions LYMPH: Denies swollen glands/lymph nodes NEURO: Denies headache, focal weakness or numbness, dizziness PSYCH: Denies depression, suicidal or homicidal ideation PHYSICAL EXAMINATION General: No acute distress, well-nourished Head: Atraumatic, normocephalic ENT: Mouth normal, oropharynx moist, no exudates or tonsillar enlargement Eyes: Conjunctiva normal, pupils equal, lids normal Neck: No JVD, supple, no guarding CVS: Normal rate, regular rhythm, no murmurs Resp: No resp distress, equal and normal breath sounds bilaterally GI: Nondistended, soft, no tenderness to palpation, no rebound or guarding Ext: Small right knee effusion versus prepatellar effusion with minimal tenderness, range of motion is preserved with only mild pain and there is no pain on axial loading of the joint. Back: No CVA or midline TTP Skin: No rash, warm Lymphatic: No lymphadeopathy noted Neuro: Awake, alert. Face symmetric. GCS 15. Normal sensation and strength in both ankles and feet Physical Exam - Vital signs Vitals: Temp Pulse Resp BP Pulse Ox 98.4 F 74 16 143/87 H 96 02/09/19 07:16 02/09/19 07:16 02/09/19 07:16 02/09/19 07:16 02/09/19 07:16 Course - Re-evaluation Re-evalutation: 02/09/19 07:43 Right knee effusion, does not have risk factors for septic arthritis, is not warm range of motion is preserved and there is no pain on axial loading. If there is a true joint effusion if it is small clinically. Differential would include prepatellar bursitis or other source of noninfectious knee effusion. The patient's back seems to be a chronic problem not exacerbated today, he does not have any incontinence, and has had multiple imaging studies so this will not be repeated today. Be referred to orthopedics if his x-ray is negative, will do ice weightbearing as tolerated and NSAIDs. 02/09/19 13:45 3- discharged with NSAID and Protonix for stomach protection. Follow-up regional orthopedics. Insert discharge I have discussed with the patient there likely diagnosis, aftercare plan, follow-up plans and my usual and customary return precautions. They verbalized understanding of this. - Vital Signs Vital signs: Temp Pulse Resp BP Pulse Ox 98.4 F 74 16 143/87 H 96 02/09/19 07:16 02/09/19 07:16 02/09/19 07:16 02/09/19 07:16 02/09/19 07:16 - Diagnostic Test Radiology reviewed: Pending, Image reviewed, Reports reviewed Discharge - Discharge Clinical Impression: Effusion, right knee, Acute exacerbation of chronic low back pain Condition: Good Disposition: HOME, SELF-CARE Instructions: Ice Packs ([facility]), Knee Effusion ([facility]), Low Back Pain ([facility]) Prescriptions: RX: Naproxen Sodium [Naprelan] 500 mg PO BID #60 tablet.sa Pantoprazole Sodium [Protonix [address] Tablet] 40 mg PO QAMPM #30 tablet.dr Forms: Return to Work Referrals: URBAN COX DO [ACTIVE STAFF] - Follow up as needed
--- NOTE | 2019-02-09 08:30 | RADIOLOGY REPORT (SQ) ---
EXAM DESCRIPTION: KNEE RIGHT 2 VIEWS COMPLETED DATE/TIME: 02/09/2019 7:56 am REASON FOR STUDY: pain swelling COMPARISON: None. NUMBER OF VIEWS: TWO VIEWS TECHNIQUE: AP and lateral radiographic images acquired of the right knee. LIMITATIONS: None. FINDINGS: MINERALIZATION: Normal. BONES: No acute fracture or dislocation. No worrisome bone lesions. JOINT: No effusion. SOFT TISSUES: There is diffuse soft tissue swelling along the prepatellar soft tissues, ventral to th e patellar tendon. This could indicate cellulitis or prepatellar bursitis. Hoffa's fat pad is komal l on the lateral view. OTHER: No other significant finding. IMPRESSION: Diffuse soft tissue swelling along the prepatellar region and ventral to the patellar te ndon. This could indicate cellulitis or prepatellar bursitis. TECHNICAL DOCUMENTATION: JOB ID: [id number] [employer]- All Rights Reserved Reading location - IP/workstation name: [email or web address]
== END 2019-02-09 08:05 | disposition home or self-care (01) ==
LOC: ER 07:11
DX: M25.461 Effusion, right knee (principal); M25.561 Pain in right knee; G89.29 Other chronic pain; M54.5 Low back pain; Z88.6 Allergy status to analgesic agent
CPT/HCPCS: 99283

== ENCOUNTER 2019-10-12 10:41 | Emergency (ER) | payer OTHER ==
[2019-10-12] MEDS ORDERED: METHYLPREDNISOLONE INJ 125 MG/2 ML SDV IM ONE (10:53)
--- NOTE | 2019-10-12 10:53 | ER Document Report ---
ED Medical Screen (RME) - General Chief Complaint: Shortness Of Breath Stated Complaint: CONGESTION,SHORT OF BREATH Time Seen by Provider: 10/12/19 10:49 Mode of Arrival: Wheelchair Information source: Patient Notes: 29-year-old presented ED for shortness of breath cough congestion he does have a history of asthma. He states he started feeling sick on Wednesday he states he does not have any fever but he has had weakness cough congestion shortness of breath. Patient is alert oriented respirations regular nonlabored but his O2 is hanging out at 88%. We have put him on 2 L nasal cannula we will start some breathing treatments steroids and get x-ray and then get him seen by another provider. Lungs very tight wheezing audible. 2 L O2 went up to 98% I have greeted and performed a rapid initial assessment of this patient. A comprehensive ED assessment and evaluation of the patient, analysis of test results and completion of medical decision making process will be conducted by a n additional ED providers. TRAVEL OUTSIDE OF THE [place] IN LAST 30 DAYS: No - Related Data Allergies/Adverse Reactions: amoxicillin trihydrate [From Augmentin] Allergy (Verified 02/09/19 07:15) diphenhydramine [From Benadryl] Allergy (Verified 02/09/19 07:15) morphine Allergy (Verified 02/09/19 07:15) Potassium Clavulanate * [From Augmentin] Allergy (Verified 02/09/19 07:15) ibuprofen Adverse Reaction (Verified 02/09/19 07:15) Past Medical History Pulmonary Medical History: Reports: Hx Asthma Renal/ Medical History: Denies: Hx Peritoneal Dialysis GI Medical History: Reports: Hx Ulcer Musculoskeltal Medical History: Reports Hx Musculoskeletal Deformity, Reports Hx Musculoskeletal Trauma Traumatic Medical History: Reports: Hx Spine Fracture Past Surgical History: Reports: Hx Oral Surgery - wisdom teeth, Hx Orthopedic Surgery, Other - Biopsy of skin and back cyst removed - Immunizations Hx Diphtheria, Pertussis, Tetanus Vaccination: No Physical Exam - Vital signs Vitals: Temp Pulse Resp BP Pulse Ox 98.6 F 100 20 120/73 88 L 10/12/19 10:47 10/12/19 10:47 10/12/19 10:47 10/12/19 10:47 10/12/19 10:47 Course - Vital Signs Vital signs: Temp Pulse Resp BP Pulse Ox 98.6 F 100 20 120/73 88 L 10/12/19 10:47 10/12/19 10:47 10/12/19 10:47 10/12/19 10:47 10/12/19 10:47
--- NOTE | 2019-10-12 10:53 | ER Document Report ---
ED Respiratory Problem - General Chief Complaint: Shortness Of Breath Stated Complaint: CONGESTION,SHORT OF BREATH Time Seen by Provider: 10/12/19 10:49 Mode of Arrival: Wheelchair Information source: Patient TRAVEL OUTSIDE OF THE [place] IN LAST 30 DAYS: No - Related Data Allergies/Adverse Reactions: amoxicillin trihydrate [From Augmentin] Allergy (Verified 02/09/19 07:15) diphenhydramine [From Benadryl] Allergy (Verified 02/09/19 07:15) morphine Allergy (Verified 02/09/19 07:15) Potassium Clavulanate * [From Augmentin] Allergy (Verified 02/09/19 07:15) ibuprofen Adverse Reaction (Verified 02/09/19 07:15) Past Medical History - Social History Family History: None Pulmonary Medical History: Reports: Hx Asthma Renal/ Medical History: Denies: Hx Peritoneal Dialysis GI Medical History: Reports: Hx Ulcer Musculoskeletal Medical History: Reports Hx Musculoskeletal Deformity, Reports Hx Musculoskeletal Trauma Traumatic Medical History: Reports: Hx Spine Fracture Past Surgical History: Reports: Hx Oral Surgery - wisdom teeth, Hx Orthopedic Surgery, Other - Biopsy of skin and back cyst removed - Immunizations Hx Diphtheria, Pertussis, Tetanus Vaccination: No Physical Exam - Vital signs Vitals: Temp Pulse Resp BP Pulse Ox 98.6 F 100 20 120/73 88 L 10/12/19 10:47 10/12/19 10:47 10/12/19 10:47 10/12/19 10:47 10/12/19 10:47 Course - Vital Signs Vital signs: Temp Pulse Resp BP Pulse Ox 98.6 F 100 20 120/73 88 L 10/12/19 10:47 10/12/19 10:47 10/12/19 10:47 10/12/19 10:47 10/12/19 10:47
[2019-10-12] MEDS ORDERED: IPRATROPIUM/ALBUTEROL 0.5-2.5 MG/3 ML AMPUL NEB ONE ×2 (10:54)
--- NOTE | 2019-10-12 11:52 | RADIOLOGY REPORT (SQ) ---
EXAM DESCRIPTION: CHEST 2 VIEWS COMPLETED DATE/TIME: 10/12/2019 11:42 am REASON FOR STUDY: short of breath COMPARISON: None. NUMBER OF VIEWS: Two view. TECHNIQUE: Frontal and lateral radiographic views of the chest acquired. LIMITATIONS: None. FINDINGS: LUNGS AND PLEURA: Low lung volumes. No opacities, masses or pneumothorax. No pleural eff usion. MEDIASTINUM AND HILAR STRUCTURES: No masses. No contour abnormalities. HEART AND VASCULAR STRUCTURES: Heart normal in size and contour. No evidence for failure. BONES: Scoliosis. HARDWARE: None in the chest. OTHER: No other significant finding. IMPRESSION: LOW LUNG VOLUMES. NO SIGNIFICANT RADIOGRAPHIC FINDING IN THE CHEST. TECHNICAL DOCUMENTATION: JOB ID: [id number] [employer]- All Rights Reserved Reading location - IP/workstation name: [email or web address]
--- NOTE | 2019-10-12 13:28 | ER Document Report ---
ED General - General Chief Complaint: Shortness Of Breath Stated Complaint: CONGESTION,SHORT OF BREATH Time Seen by Provider: 10/12/19 10:49 Mode of Arrival: Wheelchair Information source: Patient Notes: 29-year-old male arrives with chief complaint of several days of nasal congestion nasal rhinorrhea wheezing and green productive cough. Patient works at [employer]. He has had asthma since he was a young boy. Patient denies any skin rash or hemoptysis but does admit to the GUTIERREZ shortness of breath dyspnea and was satting 88% upon arrival increasing to 90% after 2 L nasal cannula. Patient does use asthma medications periodically. Patient has been around sick individuals at his job. He has a history of RAD but not CAD otherwise he is a healthy individual. He denies any sore throat or nuchal rigidity TRAVEL OUTSIDE OF THE [place] IN LAST 30 DAYS: No - Related Data Allergies/Adverse Reactions: amoxicillin trihydrate [From Augmentin] Allergy (Verified 02/09/19 07:15) diphenhydramine [From Benadryl] Allergy (Verified 02/09/19 07:15) morphine Allergy (Verified 02/09/19 07:15) Potassium Clavulanate * [From Augmentin] Allergy (Verified 02/09/19 07:15) ibuprofen Adverse Reaction (Verified 02/09/19 07:15) Home Medications: Ventolin Past Medical History - General Information source: Patient - Social History Smoking Status: Current Some Day Smoker Cigarette use (# per day): Yes Chew tobacco use (# tins/day): No - Ongoing rated close thinks this family. Smoking Education Provided: Yes Frequency of alcohol use: Rare Drug Abuse: None - Thank you very much Lives with: Family - Her anterolateral Family History: None Patient has suicidal ideation: No Patient has homicidal ideation: No Pulmonary Medical History: Reports: Hx Asthma Renal/ Medical History: Denies: Hx Peritoneal Dialysis GI Medical History: Reports: Hx Ulcer Musculoskeletal Medical History: Reports Hx Musculoskeletal Deformity, Reports Hx Musculoskeletal Trauma Traumatic Medical History: Reports: Hx Spine Fracture Past Surgical History: Reports: Hx Oral Surgery - wisdom teeth, Hx Orthopedic Surgery, Other - Biopsy of skin and back cyst removed - Immunizations Hx Diphtheria, Pertussis, Tetanus Vaccination: No Review of Systems - Review of Systems Constitutional: Malaise, Weakness - Malaise and weakness EENT: Nose congestion - Nose congestion, Nose discharge Cardiovascular: Chest pain, Dizziness, Lightheaded Respiratory: Cough, Short of breath, Wheezing - Shortness of breath wheezing Gastrointestinal: No symptoms reported Genitourinary: No symptoms reported Male Genitourinary: No symptoms reported Musculoskeletal: No symptoms reported Skin: No symptoms reported Hematologic/Lymphatic: No symptoms reported Neurological/Psychological: No symptoms reported Physical Exam - Vital signs Vitals: Temp Pulse Resp BP Pulse Ox 98.6 F 100 20 120/73 88 L 10/12/19 10:47 10/12/19 10:47 10/12/19 10:47 10/12/19 10:47 10/12/19 10:47 Interpretation: Normal - General General appearance: Alert - HEENT Head: Normocephalic Eyes: Normal Conjunctiva: Normal Cornea: Normal Extraocular movements intact: Yes Eyelashes: Normal Pupils: PERRL Ears: Normal Sinus: Normal Nasal: Clear rhinorrhea Mouth/Lips: Normal Mucous membranes: Normal - Respiratory Respiratory status: No respiratory distress - Status post breathing treatment and respiratory rate is down to 17 breaths/min Chest status: Tender Breath sounds: Wheezing - Very faint wheezing on inspiration none on expiration Chest palpation: Normal - Cardiovascular Rhythm: Regular Heart sounds: Normal auscultation Murmur: No Friction rub: No Yusuf's crunch: No - Abdominal Inspection: Normal Distension: No distension Bowel sounds: Normal Tenderness: Nontender - Back Back: Normal - Extremities General upper extremity: Normal inspection General lower extremity: Normal inspection - Neurological Neuro grossly intact: Yes Cognition: Normal Orientation: AAOx4 Hermes Coma Scale Eye Opening: Spontaneous Hermes Coma Scale Verbal: Oriented Speech: Normal Cranial nerves: Normal Cerebellar coordination: Normal - Psychological Associated symptoms: Normal affect - Skin Skin Temperature: Warm Skin Moisture: Dry Course - Vital Signs Vital signs: Temp Pulse Resp BP Pulse Ox 98.6 F 100 17 122/85 96 10/12/19 10:47 10/12/19 10:47 10/12/19 13:01 10/12/19 13:01 10/12/19 13:01 Critical Care Note - Critical Care Note Total time excluding time spent on procedures (mins): 90 Comments: I advised patient of his chest x-ray and lab findings. Also I advised him I will write him for oral Z-Nirmal Hydromet prednisone and albuterol HHN Discharge - Discharge Clinical Impression: Asthmatic bronchitis Condition: Good Disposition: HOME, SELF-CARE Additional Instructions: Off work as directed encourage fluids avoid extreme dry or cold air while with your asthmatic bronchitis. Take medicines as directed and also avoid driving while taking your medications for cough; also avoid any dangerous machinery using your cough medicine.; Use your hand-held nebulizer every 6-8 hours as needed for wheezing and/or shortness of breath.; Follow-up with personal doctor this week and return to ER if symptoms persist or worsen Prescriptions: Hydrocodone Bit/Homatropine [Hycodan Syrup 5-1.5 mg/5 ml Ud Cup] 5 ml PO Q4HP PRN #120 ml PRN Reason: Prednisone [Deltasone 20 mg Tablet] 1 tab PO DAILY 5 Days #5 tablet Albuterol Sulfate [Proair HFA Inhalation Aerosol 8.5 gm MDI] 2 puff IH Q4H PRN #1 mdi PRN Reason: Azithromycin [Zithromax 250 mg Tablet] 250 mg PO ASDIR PRN #6 tablet PRN Reason: Forms: Return to Work
[2019-10-12 14:08] LABS: A TYPE INFLUENZA AG NEGATIVE (NEGATIVE); B INFLUENZA AG NEGATIVE (NEGATIVE)
[2019-10-12 14:37] VITALS: BP 114/79
== END 2019-10-12 14:37 | disposition home or self-care (01) ==
LOC: ER 10:41
DX: J45.909 Unspecified asthma, uncomplicated (principal); R06.02 Shortness of breath; R09.81 Nasal congestion; R53.1 Weakness; F17.210 Nicotine dependence, cigarettes, uncomplicated; Z88.0 Allergy status to penicillin; Z88.6 Allergy status to analgesic agent
CPT/HCPCS: 94640 ×2; 99291; 99292; 96372; 87804; 71046; J2930; J7620

== ENCOUNTER 2020-03-13 20:51 | Emergency (ER) | payer SELFPAY ==
--- NOTE | 2020-03-13 22:02 | EKG REPORT ---
SEVERITY:- NORMAL ECG - SINUS RHYTHM : Confirmed by: Vivienne Mccray MD 13-Mar-2020 22:01:45
--- NOTE | 2020-03-13 23:05 | ER Document Report ---
ED Medical Screen (RME) - General Chief Complaint: Chest Pain Stated Complaint: CHEST PAIN, SHORTNESS OF BREATH, LEFT ARM PAIN Time Seen by Provider: 03/13/20 23:00 Mode of Arrival: Ambulatory Information source: Patient Notes: HPI; 30-year-old male presents to the emergency room complaining of left-sided chest pain that started earlier today. Describes it as pressure and tightness. States it is a constant pain. Nothing makes it worse, nothing makes it better has been taking Tylenol without relief. Denies any nausea, vomiting, diaphoresis. Recent travel. No history of PEs or DVTs. No risk factors for PEs. PE: Alert and oriented x3. Mild distress noted. Lungs: Clear to auscultation without rales, rhonchi, wheezes. Heart: Regular rate rhythm without murmurs, rubs, gallops. I have greeted and performed a rapid initial assessment of this patient. A comprehensive ED assessment and evaluation of the patient, analysis of test results and completion of the medical decision making process will be conducted by additional ED providers. I have specifically instructed the patient or family members with the patient to immediately return to any nursing staff should anything change in the patient's condition or with their chief complaint. TRAVEL OUTSIDE OF THE [place] IN LAST 30 DAYS: No - Related Data Allergies/Adverse Reactions: amoxicillin trihydrate [From Augmentin] Allergy (Verified 02/09/19 07:15) diphenhydramine [From Benadryl] Allergy (Verified 02/09/19 07:15) morphine Allergy (Verified 02/09/19 07:15) Potassium Clavulanate * [From Augmentin] Allergy (Verified 02/09/19 07:15) ibuprofen Adverse Reaction (Verified 02/09/19 07:15) Past Medical History Pulmonary Medical History: Reports: Hx Asthma Renal/ Medical History: Denies: Hx Peritoneal Dialysis GI Medical History: Reports: Hx Ulcer Musculoskeltal Medical History: Reports Hx Musculoskeletal Deformity, Reports Hx Musculoskeletal Trauma Traumatic Medical History: Reports: Hx Spine Fracture Past Surgical History: Reports: Hx Oral Surgery - wisdom teeth, Hx Orthopedic Surgery, Other - Biopsy of skin and back cyst removed - Immunizations Hx Diphtheria, Pertussis, Tetanus Vaccination: No Physical Exam - Vital signs Vitals: Temp Pulse Resp BP Pulse Ox 98.6 F 96 16 129/78 H 95 03/13/20 21:34 07/01/20 21:34 03/13/20 21:34 03/13/20 21:34 03/13/20 21:34 Course - Vital Signs Vital signs: Temp Pulse Resp BP Pulse Ox 98.6 F 96 16 129/78 H 95 03/13/20 21:34 03/13/20 21:34 03/13/20 21:34 03/13/20 21:34 03/13/20 21:34
[2020-03-13 23:44] LABS: ABSOLUTE BASOPHILS # (AUTO) 0.1 10^3/uL (0.0-0.2); ABSOLUTE EOSINOPHILS # (AUTO) 0.6 10^3/uL (0.0-0.6); ABSOLUTE LYMPHOCYTES (AUTO) 2.5 10^3/uL (0.5-4.7); ABSOLUTE MONOCYTES (AUTO) 0.5 10^3/uL (0.1-1.4); ABSOLUTE NEUT (AUTO) 4.1 10^3/uL (1.7-8.2); BASOPHILS % (AUTO) 0.9 % (0-2); HEMATOCRIT 41.8 % (37.9-51.0); HEMOGLOBIN 14.3 g/dL (13.5-17.0); LYMPHOCYTES % (AUTO) 31.9 % (13-45); MEAN CORPUSCULAR HEMOGLOBIN 29.5 pg (27.0-33.4); MEAN CORPUSCULAR HGB CONC 34.3 g/dL (32.0-36.0); MEAN CORPUSCULAR VOLUME 86 fl (80-97); MONOCYTES % (AUTO) 6.5 % (3-13); PLATELET COUNT 250 10^3/uL (150-450); RED BLOOD COUNT 4.86 10^6/uL (4.35-5.55); RED CELL DISTRIBUTION WIDTH 15.2 % (11.5-14.0); SEGMENTED NEUTROPHILS % (AUTO) 52.7 % (42-78); TOTAL CELLS COUNTED % (AUTO) 100 %; WHITE BLOOD COUNT 7.8 10^3/uL (4.0-10.5)
--- NOTE | 2020-03-13 23:56 | RADIOLOGY REPORT (SQ) ---
CLINICAL INDICATION: chest pain. TECHNIQUE: PA and lateral views were obtained of the chest COMPARISON: None. FINDINGS: The cardiomediastinal silhouette is normal. The lungs are grossly clear. No evidence of effusion or pneumothorax. Significant S-shaped rotary scoliosis.. . IMPRESSION: No evidence of active intrathoracic disease .
[2020-03-14 01:56] LABS: ALBUMIN 4.8 g/dL (3.5-5.0); ALKALINE PHOSPHATASE 97 U/L (38-126); ANION GAP 8 (5-19); ASPARTATE AMINO TRANSFERASE 34 U/L (17-59); BILIRUBIN,TOTAL 0.4 mg/dL (0.2-1.3); BLOOD UREA NITROGEN 13 mg/dL (7-20); CARBON DIOXIDE 27 mmol/L (22-30); CHLORIDE 106 mmol/L (98-107); CREATINE KINASE 86 U/L (55-170); GLUCOSE 103 mg/dL (75-110); POTASSIUM 4.5 mmol/L (3.6-5.0); TOTAL PROTEIN 7.9 g/dL (6.3-8.2)
[2020-03-14 02:05] LABS: CREATINE KINASE MB 0.47 ng/mL (<4.55)
[2020-03-14 02:06] LABS: TROPONIN I < 0.012 ng/mL
[2020-03-14] MEDS ORDERED: METHOCARBAMOL 500 MG TABLET PO ONE (06:08)
--- NOTE | 2020-03-14 06:08 | ER Document Report ---
ED Cardiac - General Chief Complaint: Chest Pain Stated Complaint: CHEST PAIN, SHORTNESS OF BREATH, LEFT ARM PAIN Time Seen by Provider: 03/13/20 23:00 Primary Care Provider: [facility] [Provider Group] - Follow up as needed [facility] [Provider Group] - Follow up as needed Mode of Arrival: Ambulatory Notes: Patient is a 30-year-old male who presents the emergency department with a chief complaint of left pain. Patient states that he feels it is a crushing feeling in his chest. Patient states that his symptoms started at 1:00 in the afternoon. Patient mentioned that a week ago, fell on top of him. He states that he took some muscle relaxers from a friend, but cannot recall what medication it was. States it did not help. TRAVEL OUTSIDE OF THE [place] IN LAST 30 DAYS: No - Related Data Allergies/Adverse Reactions: amoxicillin trihydrate [From Augmentin] Allergy (Verified 02/09/19 07:15) diphenhydramine [From Benadryl] Allergy (Verified 02/09/19 07:15) morphine Allergy (Verified 02/09/19 07:15) Potassium Clavulanate * [From Augmentin] Allergy (Verified 02/09/19 07:15) ibuprofen Adverse Reaction (Verified 02/09/19 07:15) Past Medical History - General Information source: Patient - Social History Smoking Status: Current Every Day Smoker Chew tobacco use (# tins/day): No Frequency of alcohol use: Occasional Drug Abuse: None Family History: None Pulmonary Medical History: Reports: Hx Asthma Renal/ Medical History: Denies: Hx Peritoneal Dialysis GI Medical History: Reports: Hx Ulcer Musculoskeletal Medical History: Reports Hx Musculoskeletal Deformity, Reports H x Musculoskeletal Trauma Traumatic Medical History: Reports: Hx Spine Fracture Past Surgical History: Reports: Hx Oral Surgery - wisdom teeth, Hx Orthopedic Surgery, Other - Biopsy of skin and back cyst removed - Immunizations Hx Diphtheria, Pertussis, Tetanus Vaccination: No Review of Systems - Review of Systems Notes: REVIEW OF SYSTEMS: CONSTITUTIONAL : Denies recent illness. Denies recent unintentional weight loss. Denies fever, chills, or sweats. EENT: Denies eye, ear, throat, or mouth pain, discharge, or symptoms. Denies n abiel or sinus congestion. CARDIOVASCULAR: See HPI. RESPIRATORY: Denies shortness of breath, cough, congestion, difficulty breathing, or wheezing. GASTROINTESTINAL: Denies nausea, vomiting, and diarrhea. Denies abdominal pain. Denies constipation. GENITOURINARY: Denies difficulty urinating, burning, blood in urine, urgency or frequency. MUSCULOSKELETAL: Denies neck and back pain. Denies joint pain or swelling. SKIN: Denies rash, itchiness, or lesions HEMATOLOGIC : Denies easy bruising or bleeding. LYMPHATIC: Denies swollen, painful, enlarged glands. NEUROLOGICAL: Denies no numbness or tingling denies weakness. Denies headache. Denies altered mental status. Denies alteration in speech. PSYCHIATRIC: Denies stress, anxiety, alteration in sleep patterns, or depression. All other systems reviewed and negative. Physical Exam - Vital signs Vitals: Temp Pulse Resp BP Pulse Ox 98.6 F 96 16 129/78 H 95 03/13/20 21:34 03/13/20 21:34 03/13/20 21:34 03/13/20 21:34 03/13/20 21:34 - Notes Notes: PHYSICAL EXAMINATION: GENERAL: Appears well, healthy, well-nourished, no acute distress. HEAD: Normocephalic, atraumatic. EYES: PERRL, conjunctiva normal, all extraocular movements intact, sclera nonicteric ENT: Moist mucous membranes. NECK: Supple, no noticeable swelling, redness, rash. Normal range of motion. LUNGS: Equal breath sounds bilaterally and clear to auscultation. No wheezes rales or rhonchi. CARDIOVASCULAR: S1-S2, regular rate, regular rhythm. Radial pulses 2+, normal. ABDOMEN: Normoactive bowel sounds. Soft, nontender, no guarding, no rebound tenderness, and no masses palpated. EXTREMITIES: Normal strength and range of motion, no pitting or edema. No cyanosis. NEUROLOGICAL: Moves all extremities upon command. Strength 5/5 in all extremities. PSYCH: Normal mood, normal affect. SKIN: Warm, dry. No rash, lesions, ulcerations noted. Normal skin turgor. CHEST WALL: Tenderness upon palpation to left anterior chest. Course - Re-evaluation Re-evalutation: 03/14/20 06:09 Hematology is unremarkable. Chemistries are also unremarkable. Troponin was negative. I have a low suspicion for a myocardial infarction, Pulmonary Emboli or any life threatening etology at this time. Chest x-ray is normal and no pneumonia noted. Patient will be started on Robaxin, as he has chest wall pain upon palpation. This is most likely due to contused ribs. Patient has an incentive spirometer at home. Advised him to use this. He is in agreement with this plan. Follow-up precautions were given. Verbal discharge instructions were given to the patient. They verbalized understanding. They are stable for discharge. - Vital Signs Vital signs: Temp Pulse Resp BP Pulse Ox 97.7 F 96 20 125/93 H 97 03/14/20 06:36 03/13/20 21:34 03/14/20 06:36 03/14/20 06:36 03/14/20 06:36 - Laboratory Result Diagrams: 03/13/20 23:24 03/14/20 01:21 Laboratory results interpreted by me: 03/13/20 23:24 RDW 15.2 H Eos % (Auto) 8.0 H - EKG Interpretation by Me Additional EKG results interpreted by me: Sinus rhythm. Rate 92. MI 132; QRS 86; QT 340; QTc 421. No ST elevations or depressions noted. No peak T waves noted. Discharge - Discharge Clinical Impression: Chest wall pain Contusion of rib on left side Qualifiers: Encounter type: initial encounter Qualified Code(s): S20.212A - Contusion of left front wall of thorax, initial encounter Condition: Stable Disposition: HOME, SELF-CARE Additional Instructions: You were seen today in the emergency department for chest pain. Your work-up is normal. Please follow-up with 1 of the clinics in regards to this visit. Take Robaxin as needed. Use the incentive spirometer you have at home to prevent pneumonia. Prescriptions: Methocarbamol [Robaxin 500 mg Tablet] 500 mg PO BID PRN #20 tablet PRN Reason: Forms: Return to Work Referrals: [facility] [Provider Group] - Follow up as needed [facility] [Provider Group] - Follow up as needed
[2020-03-14] MEDS ORDERED: NORMAL SALINE 1000 ML 1,000 ML IV ONE (06:13)
[2020-03-14 06:42] VITALS: BP 125/93
== END 2020-03-14 06:43 | disposition home or self-care (01) ==
LOC: ER 20:51
DX: S20.212A Contusion of left front wall of thorax, initial encounter (principal); X58.XXXA Exposure to other specified factors, initial encounter; R07.89 Other chest pain; F17.200 Nicotine dependence, unspecified, uncomplicated; Z88.0 Allergy status to penicillin; Z88.8 Allergy status to other drugs, medicaments and biological substances; Z88.6 Allergy status to analgesic agent; Z88.5 Allergy status to narcotic agent
CPT/HCPCS: 36415; 71046; 80053; 82550; 82553; 84484; 85025; 93005; 93010; 99285

== ENCOUNTER 2020-07-29 15:55 | Emergency (ER) | payer SELFPAY ==
[2020-07-29 17:08] VITALS: BP 100/76
== END 2020-07-29 17:22 | disposition left against medical advice (07) ==
LOC: ER 15:55
DX: Z53.21 Procedure and treatment not carried out due to patient leaving prior to being seen by health care provider (principal)